=== PATIENT | male | born 1970 | race American Indian/Alaskan Native ===

== ENCOUNTER 2017-09-18 23:37 | Emergency (ER) | payer MEDICARE ==
[2017-09-19] MEDS ORDERED: NACL 0.9% 1000 ML 1,000 ML IV ONE (04:20)
--- NOTE | 2017-09-19 04:30 | Emergency Department Report ---
ED General Adult HPI - General Chief complaint: Alcohol Stated complaint: ETOH Time Seen by Provider: 09/19/17 04:18 Source: patient, EMS Mode of arrival: Stretcher Limitations: No Limitations, Altered Mental Status - History of Present Illness Initial comments: Patient brought in with report that he was about to take some pills, with some intent of apparent harm to himself, the patient will also ingested a significant amount of alcohol as well. Friends apparently stopped them, EMS was called, patient was brought for further transport. Patient is significantly intoxicated, primarily been sleeping during evaluation, it is difficult to get significant history from him, but he has apparently been feeling depressed recently and was taking pills as a possible suicide gesture. It is difficult to get any stable information about significant suicidal intent , but his apparent intent to take an overdose ingestion is probably the most significant statement of his underlying issues. Patient's past medical history is difficult to assess, as patient has not had prior visits to this emergency Department, but nursing note show the patient has a history of being HIV positive. - Related Data Allergies Allergy/AdvReac Type Severity Reaction Status Date / Time No Known Allergies Allergy Unverified 09/18/17 23:42 ED Review of Systems ROS: Stated complaint: ETOH Other details as noted in HPI Comment: Unobtainable due to pts medical conditions ED Past Medical Hx - Past Medical History Previous Medical History?: Yes Hx HIV: Yes - Surgical History Past Surgical History?: No - Social History Smoking Status: Unknown if ever smoked Substance Use Type: Alcohol ED Physical Exam - General Limitations: No Limitations, Altered Mental Status (odor of alcohol, somnolent, arouses with verbal and physical stimulus) General appearance: appears intoxicated, lethargic - Head Head exam: Present: atraumatic, normocephalic - Eye Eye exam: Present: PERRL, EOMI - ENT ENT exam: Present: normal exam, other (well-healed facial scars to right side of face) - Neck Neck exam: Present: normal inspection. Absent: tenderness, meningismus - Respiratory Respiratory exam: Present: normal lung sounds bilaterally - Cardiovascular Cardiovascular Exam: Present: regular rate, normal heart sounds - GI/Abdominal GI/Abdominal exam: Present: soft. Absent: tenderness, guarding - Rectal Rectal exam: Present: deferred - Extremities Exam Extremities exam: Present: normal inspection - Back Exam Back exam: Present: normal inspection - Neurological Exam Neurological exam: Present: other (difficult to assess secondary to patient's intoxication, but moves all extremities spontaneously) - Psychiatric Psychiatric exam: Present: suicidal ideation - Skin Skin exam: Present: warm, dry, intact ED Course Vital Signs 09/18/17 09/19/17 09/19/17 23:39 04:58 07:30 Temperature 98.0 F 97.6 F Pulse Rate 90 78 Respiratory 16 16 16 Rate Blood Pressure 124/80 Blood Pressure 145/104 [Right] O2 Sat by Pulse 100 100 100 Oximetry 09/19/17 10:05 Temperature 98.2 F Pulse Rate 82 Respiratory 18 Rate Blood Pressure Blood Pressure 118/74 [Right] O2 Sat by Pulse 100 Oximetry - Reevaluation(s) Reevaluation #1: 09/19/17 06:29 Patient still sleeping, wakes with some verbal or physical stimulus, generally appropriate, but prefers to sleep, on-call level is negligible, urine drug screen is still pending as patient has not urinated yet. ED Medical Decision Making - Lab Data Result diagrams: 09/19/17 04:38 09/19/17 04:38 - Radiology Data Radiology results: report reviewed (old bilateral lacunar infarct, basal ganglia , no other acute pathology) - Medical Decision Making Patient appears to have had an acute depressive episode, with thoughts or actual plan to take pills as method of suicide, but ethanol intoxication and his drinking habits appear to have been more significant immediate concern for patient. Patient does not appear to be a significant risk for himself, I'll call and salicylate levels are negative, and I do not believe a 1013 and involuntary commitment is warranted at this time, but mental health evaluation should be proceeded in any case for confirmation, and 1013 may be applied at that time, if necessary. - Differential Diagnosis alkaline intoxication, drug intoxication, cocaine use, head injury, HIV dec Critical care attestation.: If time is entered above; I have spent that time in minutes in the direct care of this critically ill patient, excluding procedure time. ED Disposition Clinical Impression: Suicidal ideation, Substance abuse Depression Qualifiers: Depression Type: unspecified Qualified Code(s): F32.9 - Major depressive disorder, single episode, unspecified Disposition: [id number]/TX-[id number] PSY HOSP/PSY UNIT Is pt being admited?: No Does the pt Need Aspirin: No Condition: Stable Referrals: PRIMARY CARE, [Primary Care Provider] - 3-5 Days Time of Disposition: 06:00
[2017-09-19 05:00] LABS: Basophils % (Auto) 0.3 % (0.0-1.8); Eosinophils % (Auto) 0.5 % (0.0-4.3); Hematocrit 38.6 % (35.5-45.6); Lymphocytes % (Auto) 32.6 % (13.4-35.0); Mean Corpuscular HGB Conc 34 % (32-34); Mean Corpuscular Hemoglobin 31 pg (28-32); Mean Corpuscular Volume 91 fl (84-94); Monocytes # (Auto) 0.4 K/mm3 (0.0-0.8); Monocytes % (Auto) 11.4 % (0.0-7.3); Platelet Count 197 K/mm3 (140-440); Red Blood Count 4.23 M/mm3 (3.65-5.03); Red Cell Distribution Width 13.5 % (13.2-15.2)
[2017-09-19 05:47] LABS: Alanine Aminotransferase 13 units/L (7-56); Albumin 3.6 g/dL (3.9-5); BUN/Creatinine Ratio 11; Blood Urea Nitrogen 9 mg/dL (9-20); Calcium 8.5 mg/dL (8.4-10.2); Hemolysis Index 8
[2017-09-19 06:19] LABS: Bilirubin,Urine NEG (Negative); Blood,Urine NEG (Negative); Color,Urine Yellow (Yellow); Mucus,Urine FEW /HPF; Protein,Urine <15 mg/dL mg/dL (Negative)
[2017-09-19 06:27] LABS: Amphetamine Screen,Urine PRESUMPTIVE NEGATIVE; Benzodiazepines Screen,Urine PRESUMPTIVE NEGATIVE; Methadone Screen,Urine PRESUMPTIVE NEGATIVE; Opiate Screen,Urine PRESUMPTIVE NEGATIVE
[2017-09-19 07:05] LABS: Cannabinoid Screen,Urine PRESUMPTIVE POSITIVE; Cocaine Screen,Urine PRESUMPTIVE POSITIVE
--- NOTE | 2017-09-19 07:23 | Cat Scan Report ---
FINAL REPORT EXAM: CT HEAD/BRAIN WO CON HISTORY: lethargic, obvious alcohol, uncertain if trauma TECHNIQUE: Routine axial imaging was obtained of the brain without IV contrast. There are no previous studies available for comparison. FINDINGS: There is mild generalized atrophy. There are remote strokes in the right frontal lobe and right temporal lobe. There are remote lacunar infarcts in the basal ganglia bilaterally as well as in the right cerebellar hemisphere. There is no evidence of acute stroke or hemorrhage. The ventricular system is symmetric in size. The sinuses reveal secretions in the sphenoid sinuses. The mastoid air cells are well pneumatized. Calvarium is unremarkable. IMPRESSION: Mild generalized atrophy with remote strokes in the right frontal and right temporal lobes. Bilateral remote lacunar infarcts in the basal ganglia. No definite acute stroke or hemorrhage identified. Sphenoid sinusitis.
--- NOTE | 2017-09-19 10:54 | Consultation ---
History of Present Illness - Reason for Consult Consult date: 09/19/17 Reason for consult: Mental Health Evaluation Requesting physician: RAMON CHAPMAN - Chief Complaint Chief complaint: "I wanted to " - History of Present Psychiatric Illness 46 y.o. AA male presenting to the ER for suicide attempt by taking pills. Today the patient is calm and cooperative during the assessment. He stated that his life is a "mess" because he is unemployed and having family issues. He stated that he attempted to take 20 plus pills he couldn't ID prior to his admission to the ER to kill himself. Also, he stated that he was drinking (etoh) yesterday to lower his depression. He rate his depression 9/10, with 10 being the worse. He stated that he feel sad and hopeless with no reason to live. He stated having a long hx of alcohol abuse and recreational drug use. He would not confirm or deny SI's, but denies HI's and AVH's. He denies any manic episodes, but acknowledged erratic sleep. Medications and Allergies Allergies Allergy/AdvReac Type Severity Reaction Status Date / Time No Known Allergies Allergy Unverified 09/18/17 23:42 Past psychiatric history - Past Medical History Past Medical History: HIV/AIDS Past Surgical History: No surgical history - past Psychiatric treatment and history psychiatric treatment history: Would not confirm or deny a psy hx. He acknowledged a fam psy hx of mood do's. - Social History Social history: lives with family Mental Status Exam - Vital signs Last Vital Signs Temp 98.2 F 09/19/17 10:05 Pulse 82 09/19/17 10:05 Resp 18 09/19/17 10:05 BP 118/74 09/19/17 10:05 Pulse Ox 100 09/19/17 10:05 - Exam Narrative exam: MSE: Appearance: calm Behavior: regular eye contact Speech: regular rate and low tone Mood: sad, withdrawn, depressed Affect: congruent to mood Thought Process: circumstantial Thought Content: denies HI's and AVH's, he would not confirm or deny SI's Motor Activity: ambulatory Cognition: A/O x 3 Insight: variable Judgment: variable Results Result Diagrams: 09/19/17 04:38 09/19/17 04:38 Abnormal lab results 09/19/17 09/19/17 09/19/17 Range/Units 04:38 04:38 04:38 WBC 3.2 L (4.5-11.0) K/mm3 Haakon % (Auto) 11.4 H (0.0-7.3) % Lymph # 1.0 L (1.2-5.4) K/mm3 Glucose 107 H (75-100) mg/dL Albumin 3.6 L (3.9-5) g/dL Salicylates < 0.3 L (2.8-20.0) mg/dL Acetaminophen (10.0-30.0) ug/mL 09/19/17 Range/Units 04:38 WBC (4.5-11.0) K/mm3 Haakon % (Auto) (0.0-7.3) % Lymph # (1.2-5.4) K/mm3 Glucose (75-100) mg/dL Albumin (3.9-5) g/dL Salicylates (2.8-20.0) mg/dL Acetaminophen < 5.0 L (10.0-30.0) ug/mL All other labs normal. Assessment and Plan Assessment and plan: Impression: MDD, Severe Type. Substance Use DO (cocaine). Cannabis Use DO. The patient attempted suicide by taking 20 plus pills he couldn't ID yesterday. Today the patient is calm and cooperative during the assessment. The patient would not confirm or deny SI's. DDx: R/O Bipolar DO, R/O Substance Induced Mood DO Recommendation/Plan: Continue 1013 with placement to inpatient psy services. Start Remeron 15 mg PO HS for depression. Discusses possible suicidality/ medication induced germán with patient reference Remeron.
[2017-09-19] MEDS ORDERED: VISTARIL ONE (16:50)
[2017-09-19] MEDS ORDERED: VISTARIL PO ONE (16:54)
[2017-09-19] MEDS ORDERED: REMERON PO SCH (22:00)
[2017-09-19 22:04] VITALS: BP 149/96
== END 2017-09-19 22:47 ==
LOC: ED 23:37
DX: F32.9 Major depressive disorder, single episode, unspecified (principal); F10.129 Alcohol abuse with intoxication, unspecified; F12.10 Cannabis abuse, uncomplicated; F14.10 Cocaine abuse, uncomplicated; Z79.899 Other long term (current) drug therapy
CPT/HCPCS: 36415; 70450; 80053; 80307; 81001; 85025; 96360; 99285; G0480; J7030; 80320; Q0177